=== PATIENT | male | born 1965 | race Two or more races ===

== ENCOUNTER 2018-07-11 13:45 | Emergency (ER) | payer MEDICAID ==
[~2018-07-11] VITALS: Ht 172.7 cm; Wt 75.0 kg
[2018-07-11] MEDS ORDERED: BACITRACIN 0.9 GM PACKET OINTMENT TP ONE (15:00)
[2018-07-11] MEDS ORDERED: LIDOCAINE/PF 1% 5 ML VIAL INJ ONE (15:00)
[2018-07-11] MEDS ORDERED: PERTUSS(ACELL),DIPH,TET VAC/PF 0.5 ML VIAL IM ONE (15:00)
[2018-07-11 16:02] VITALS: BP 122/72
== END 2018-07-11 16:03 | disposition home or self-care (01) ==
LOC: EMS 13:46
DX: S61.412A Laceration without foreign body of left hand, initial encounter (principal); F17.210 Nicotine dependence, cigarettes, uncomplicated; W26.0XXA Contact with knife, initial encounter; Y93.89 Activity, other specified; Y92.89 Other specified places as the place of occurrence of the external cause; Y99.8 Other external cause status
CPT/HCPCS: 12002; 90471; 90715; 99283; 99406; J3490